=== PATIENT | male | born 1945 | race Caucasian/White ===

== ENCOUNTER 2023-04-30 17:37 | Inpatient (IN) | payer MEDICARE ==
[2023-04-30 20:05] VITALS: BMI 25.1
[2023-04-30] MEDS ORDERED: Nitroglycerin 0.4 MG TAB (25 Tab Bottle) SL PRN (21:03)
[2023-04-30] MEDS ORDERED: Tamsulosin HCl 0.4 MG CAP PO SCH (21:30)
[2023-04-30] MEDS ORDERED: TICAGRELOR 90 MG TABLET PO SCH (21:30)
[2023-04-30] MEDS ORDERED: Lantus 1000 UNITS/10 ML VIAL SC SCH (21:30)
[2023-04-30] MEDS ORDERED: Morphine IR Tab 15 MG TAB PO SCH (21:30)
[2023-04-30 22:12] LABS: INR-International Normal Ratio 0.9; PTT 24.8 sec (22.0-33.0); Prothrombin Time 10.1 sec (9.5-12.1)
[2023-04-30] MEDS: Aspirin 81 mg Enteric Coated Tablet PO SCH ×2 (22:13→22:14)
[2023-04-30] MEDS: Nitroglycerin 2% Ointment 1 INCH/1 GM Packet TOP SCH (22:13)
[2023-04-30 22:19] LABS: Troponin I Less than 0.010 ng/mL (< 0.028)
[2023-04-30 22:22] LABS: Magnesium 1.6 mg/dL (1.6-2.6)
[2023-05-01 00:45] LABS: Troponin I Less than 0.010 ng/mL (< 0.028)
[2023-05-01] MEDS ORDERED: Magnesium Oxide 400 MG TAB PO SCH (03:45)
[2023-05-01 04:32] LABS: Anion Gap 9 mmol/L (10-20); BUN (Urea Nitrogen) 23 mg/dL (8.4-25.7); Calc. Creatinine Clearance 53 mL/min (70-130); Calcium 8.8 mg/dL (7.8-10.44); Carbon Dioxide 28 mmol/L (23-31); Cardiac Risk 5.5 (Less than 4.5); Chloride 106 mmol/L (98-107); Cholesterol 153 mg/dl (< 200 Desired); Estimated GFR 55; Glucose 121 mg/dL (83-110); HDL Cholesterol 28 mg/dL (>60 Neg Risk); LDL Cholesterol, Calculated 94 mg/dL; Potassium 4.2 mmol/L (3.5-5.1); Sodium 139 mmol/L (136-145); Triglycerides 157 mg/dL (Less than 150)
[2023-05-01 04:33] LABS: #Eosinphils 0.2 10x3/uL (0.0-0.5); #Monocytes 0.5 10x3/uL (0.0-1.1); #Neutrophils 2.1 10x3/uL (1.5-8.4); %Basophils 0.7 % (0.0-2.0); %Eosinophils 4.5 % (0.0-6.0); %Monocytes 11.6 % (0.0-10.0); Hematocrit 36.8 % (38.8-50.0); Hemoglobin 12.2 g/dL (13.5-17.5); Mean Corpuscular HGB CONC 33.2 g/dL (32.0-36.0); Mean Corpuscular Hemoglobin 31.1 pg (27.0-33.0); Mean Corpuscular Volume 93.9 fl (81.2-95.1); Platelet Count 177 10x3/uL (150-450); RBC Distribution Width 13.8 % (11.5-14.5); Red Blood Cell (RBC) Count 3.92 10x6/uL (4.32-5.72)
[2023-05-01] MEDS: Nitroglycerin 2% Ointment 1 INCH/1 GM Packet TOP SCH ×3 (06:19→21:00)
[2023-05-01] MEDS: Morphine ER 15 MG TAB PO SCH ×3 (08:47→21:50)
[2023-05-01] MEDS: Lisinopril 10 MG TAB PO SCH (08:48)
[2023-05-01] MEDS: TICAGRELOR 90 MG TABLET PO SCH ×2 (08:49→20:39)
[2023-05-01] MEDS ORDERED: Morphine IR Tab 15 MG TAB PO SCH (09:00)
[2023-05-01] MEDS ORDERED: Aspirin Chewable 81 MG TAB PO SCH (09:00)
[2023-05-01] MEDS: HYDROcodone/Acetaminophen 10/325 mg Tablet PO SCH (12:15)
[2023-05-01 12:36] LABS: Hemoglobin A1c 6.3 % (4.0-6.0)
[2023-05-01] MEDS ORDERED: Sodium Chloride 0.9% 500 ML IV SCH (16:30)
[2023-05-01] MEDS: Aspirin 81 mg Enteric Coated Tablet PO SCH (20:38)
[2023-05-01] MEDS: Tamsulosin HCl 0.4 MG CAP PO SCH ×2 (20:39→21:00)
[2023-05-01] MEDS: Lantus 1000 UNITS/10 ML VIAL SC SCH (20:59)
[2023-05-01] MEDS ORDERED: Lactated Ringer's 1,000 ML IV SCH (21:30)
[2023-05-02] MEDS: Lisinopril 10 MG TAB PO SCH (08:33)
[2023-05-02] MEDS: TICAGRELOR 90 MG TABLET PO SCH ×2 (08:34→21:57)
[2023-05-02] MEDS: Morphine ER 15 MG TAB PO SCH ×3 (08:34→21:57)
[2023-05-02] MEDS: HYDROcodone/Acetaminophen 10/325 mg Tablet PO SCH (12:39)
[2023-05-02] MEDS ORDERED: Communication Order-Pharmacy FS SCH (14:30)
[2023-05-02] MEDS: Aspirin 81 mg Enteric Coated Tablet PO SCH (21:57)
[2023-05-02] MEDS: Lantus 1000 UNITS/10 ML VIAL SC SCH (21:57)
[2023-05-02] MEDS: Tamsulosin HCl 0.4 MG CAP PO SCH (21:57)
[2023-05-03 03:49] LABS: #Eosinphils 0.1 10x3/uL (0.0-0.5); #Monocytes 0.4 10x3/uL (0.0-1.1); #Neutrophils 1.6 10x3/uL (1.5-8.4); %Basophils 0.6 % (0.0-2.0); %Eosinophils 3.9 % (0.0-6.0); %Neutrophils 43.9 % (40.0-75.0); Hematocrit 34.5 % (38.8-50.0); Hemoglobin 11.6 g/dL (13.5-17.5); Mean Corpuscular HGB CONC 33.6 g/dL (32.0-36.0); Mean Corpuscular Hemoglobin 31.4 pg (27.0-33.0); Mean Corpuscular Volume 93.5 fl (81.2-95.1); Mean Platelet Volume 10.9 fl (7.4-10.4); Platelet Count 183 10x3/uL (150-450); RBC Distribution Width 13.5 % (11.5-14.5); Red Blood Cell (RBC) Count 3.69 10x6/uL (4.32-5.72); White Blood Cell (WBC) Count 3.6 10x3/uL (3.5-10.5)
[2023-05-03 03:51] LABS: PTT 29.6 sec (22.0-33.0); Prothrombin Time 10.4 sec (9.5-12.1)
[2023-05-03 04:21] LABS: ALT (SGPT) 16 U/L (8-55); AST (SGOT) 18 U/L (5-34); Albumin 3.2 g/dL (3.4-4.8); Alkaline Phosphatase 53 U/L (40-110); Anion Gap 12 mmol/L (10-20); BUN (Urea Nitrogen) 25 mg/dL (8.4-25.7); Bilirubin, Total 0.5 mg/dL (0.2-1.2); Calc. Creatinine Clearance 42 mL/min (70-130); Calcium 9.4 mg/dL (7.8-10.44); Carbon Dioxide 27 mmol/L (23-31); Chloride 104 mmol/L (98-107); Estimated GFR 42; Globulin 1.9 g/dL (2.4-3.5); Glucose 76 mg/dL (83-110); Potassium 4.3 mmol/L (3.5-5.1); Protein, Total 5.1 g/dL (5.8-8.1); Sodium 139 mmol/L (136-145)
[2023-05-03] MEDS ORDERED: Nitroglycerin 50 MG/250 ML BOT 250 ML ONE (06:52)
[2023-05-03] MEDS ORDERED: Verapamil 5 MG/2 ML VIAL ONE (06:52)
[2023-05-03] MEDS ORDERED: Heparin 10,000 UNITS/ 10 ML VIAL ONE (06:52)
[2023-05-03] MEDS ORDERED: Lidocaine 4% PF 5 ML AMP ONE (06:52)
[2023-05-03] MEDS ORDERED: Lidocaine 1% (PF) 30 ML VIAL ONE (06:54)
[2023-05-03] MEDS ORDERED: Acetylcysteine 800 MG/4 ML VIAL ONE ×2 (07:39→07:45)
[2023-05-03] MEDS ORDERED: fentaNYL 50 mcg/mL 1 mL Vial ONE ×2 (08:18→09:19)
[2023-05-03] MEDS ORDERED: Midazolam HCl 2 mg/2 ml Vial ONE ×2 (08:18→09:28)
[2023-05-03] MEDS ORDERED: Adenosine 6 MG/2 ML VIAL ONE (08:53)
[2023-05-03] MEDS ORDERED: Atropine Sulfate 1 mg/1 ml Vial ONE (09:06)
[2023-05-03] MEDS ORDERED: PHENYLEPHRINE-NS 100 MCG/ML 10 ML SYRINGE ONE (09:06)
[2023-05-03] MEDS ORDERED: Acetaminophen/Codeine 30-300mg Tablet PO PRN ×2 (10:02)
[2023-05-03] MEDS ORDERED: Nitroglycerin 0.4 MG TAB (25 Tab Bottle) SL PRN (10:02)
[2023-05-03] MEDS ORDERED: Sodium Chloride 0.9% 200 ML IV PRN (10:02)
[2023-05-03] MEDS: TICAGRELOR 90 MG TABLET PO SCH ×2 (11:19→20:36)
[2023-05-03] MEDS: HYDROcodone/Acetaminophen 10/325 mg Tablet PO SCH (11:19)
[2023-05-03] MEDS: Morphine ER 15 MG TAB PO SCH ×3 (11:27→20:36)
[2023-05-03] MEDS: Tamsulosin HCl 0.4 MG CAP PO SCH (20:36)
[2023-05-03] MEDS: Aspirin 81 mg Enteric Coated Tablet PO SCH (20:37)
[2023-05-03] MEDS: Lantus 1000 UNITS/10 ML VIAL SC SCH (21:15)
[2023-05-04] MEDS ORDERED: ALPRAZolam 1 MG TAB PO SCH (02:45)
[2023-05-04 04:41] LABS: Anion Gap 14 mmol/L (10-20); BUN (Urea Nitrogen) 22 mg/dL (8.4-25.7); Calc. Creatinine Clearance 48 mL/min (70-130); Calcium 10.1 mg/dL (7.8-10.44); Carbon Dioxide 24 mmol/L (23-31); Chloride 102 mmol/L (98-107); Estimated GFR 49; Glucose 146 mg/dL (83-110); Potassium 4.2 mmol/L (3.5-5.1); Sodium 136 mmol/L (136-145)
[2023-05-04] MEDS: TICAGRELOR 90 MG TABLET PO SCH (10:54)
[2023-05-04] MEDS: Morphine ER 15 MG TAB PO SCH (10:54)
[2023-05-04 12:31] VITALS: BP 96/52; TEMP 97.6
== END 2023-05-04 12:20 | disposition home or self-care (01) | DRG 322 ==
LOC: CSHTELE 19:37 → OBSVTOIN 05-03 11:27
PROVIDERS: ADMIT Internal Medicine; ATTEND Internal Medicine
PROC: 4A023N7 Measurement of Cardiac Sampling and Pressure, Left Heart, Percutaneous Approach (ICD-10-PCS; principal; 2023-05-03)
PROC: 027034Z Dilation of Coronary Artery, One Artery with Drug-eluting Intraluminal Device, Percutaneous Approach (ICD-10-PCS; 2023-05-03)
PROC: 02703ZZ Dilation of Coronary Artery, One Artery, Percutaneous Approach (ICD-10-PCS; 2023-05-03)
PROC: B2151ZZ Fluoroscopy of Left Heart using Low Osmolar Contrast (ICD-10-PCS; 2023-05-03)
PROC: B2111ZZ Fluoroscopy of Multiple Coronary Arteries using Low Osmolar Contrast (ICD-10-PCS; 2023-05-03)
DX: T82.855A Stenosis of coronary artery stent, initial encounter (principal); I25.110 Atherosclerotic heart disease of native coronary artery with unstable angina pectoris; N17.9 Acute kidney failure, unspecified; E78.5 Hyperlipidemia, unspecified; E11.22 Type 2 diabetes mellitus with diabetic chronic kidney disease; N40.0 Benign prostatic hyperplasia without lower urinary tract symptoms; L40.50 Arthropathic psoriasis, unspecified; E11.51 Type 2 diabetes mellitus with diabetic peripheral angiopathy without gangrene; I73.9 Peripheral vascular disease, unspecified; N18.31 Chronic kidney disease, stage 3a; I25.2 Old myocardial infarction; Z88.8 Allergy status to other drugs, medicaments and biological substances; Z79.899 Other long term (current) drug therapy; Z79.82 Long term (current) use of aspirin; M54.9 Dorsalgia, unspecified; Z96.652 Presence of left artificial knee joint; Z98.890 Other specified postprocedural states; K21.9 Gastro-esophageal reflux disease without esophagitis; G89.4 Chronic pain syndrome; E11.42 Type 2 diabetes mellitus with diabetic polyneuropathy; I12.9 Hypertensive chronic kidney disease with stage 1 through stage 4 chronic kidney disease, or unspecified chronic kidney disease
CPT/HCPCS: 36415; 36416; 80048; 80053; 80061; 83036; 83735; 84484; 85025; 85347; 85610; 85730; 92920; 92928; 92978; 93005; 93010; 93306; 93458; 96372; 99152; 99153; C1725; C1753; C1769; C1874; C1887; C1894; C9600; G0378; J0153; J0461; J1644; J1650; J1815; J2001; J2250; J3010; J7030; J7120